=== PATIENT | male | born 2005 | race Two or more races ===

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

== ENCOUNTER 2024-04-16 17:16 | Emergency (ER) | payer MEDICAID, OTHER ==
[~2024-04-16] VITALS: Ht 177.8 cm; Wt 73.0 kg
[2024-04-16 17:16] VITALS: BP 0/0; PULSE 0; RESP 0; O2SAT 0
[2024-04-16] MEDS ORDERED: NALOXONE HCL 1MG/ML 2ML SYRINGE IV ONE (17:17)
[2024-04-16] MEDS ORDERED: EPINEPHrine HCL 1 MG/10 ML SYRG ONE ×3 (17:45→18:05)
[2024-04-16 18:22] LABS: Mean Corpuscular Hemoglobin 29.5 pg (28.0-32.0); Mean Corpuscular Hgb Conc. 28.3 g/dL (32.0-36.0); Red Blood Cells 4.46 10^6/uL (4.5-5.90)
[2024-04-16 18:23] LABS: Hematocrit 46.6 % (41.0-53.0); Hemoglobin 13.2 g/dL (13.5-17.5); Mean Corpuscular Volume 104.4 fL (80.0-100.0); Red Cell Distribution Width 16.2 % (11.8-14.3); White Blood Cell 13.3 10^3/uL (4.4-10.8)
[2024-04-16 18:34] LABS: Band Neutrophils % (manual) 0; Basophils % (manual) 0 (0.0-2.0); Metamyelocytes % 0; Myelocytes % 0; Promyelocytes % 0; Reactive Lymphocytes 0
[2024-04-16 19:03] LABS: Amphetamine Screen, Urine Neg (NEGATIVE); Barbiturate Scree,Urine Neg (NEGATIVE); Benzodiazephine Screen, Urine Neg (NEGATIVE)
[2024-04-16 19:04] LABS: Cannabinoid Screen, Urine Neg (NEGATIVE); Cocaine Screen, Urine Pos (NEGATIVE); Opiate Scree,Urine Neg (NEGATIVE); Phencyclidine Screen, Urine Neg (NEGATIVE)
[2024-04-16 21:11] LABS: Blast Cells 5; Eosinophils % (manual) 2 (0-7); Lymphocytes % (manual) 65 (10.0-50.0); Monocytes % (manual) 8 (0-12); Platelet Estimate Decreased
[2024-04-16 21:12] LABS: Macrocytosis Slight
== END 2024-04-16 18:06 ==
LOC: ER 17:16 → EDBD 17:16 → ER 18:06
DX: T75.1XXA Unspecified effects of drowning and nonfatal submersion, initial encounter (principal); I46.9 Cardiac arrest, cause unspecified; F10.10 Alcohol abuse, uncomplicated; F14.10 Cocaine abuse, uncomplicated; Y93.89 Activity, other specified; Y92.89 Other specified places as the place of occurrence of the external cause; Y99.8 Other external cause status
CPT/HCPCS: 31500; 36415; 80307; 80320; 85007; 85027; 92950; 99285; J0171; J2310